=== PATIENT | female | born 1995 | race African-American/Black ===

== ENCOUNTER 2017-01-11 08:48 | Emergency (ER) | payer SELFPAY ==
[~2017-01-11] VITALS: Ht 172.7 cm; Wt 56.7 kg
[2017-01-11 09:14] LABS: BILIRUBIN,URINE NEGATIVE (NEG); GLUCOSE,URINE NEGATIVE (NEG); NITRITE,URINE NEGATIVE (NEG); PH,URINE 6.5; PROTEIN,URINE NEGATIVE (NEG-TRACE); UROBILINOGEN,URINE 0.2 mg/dL (0.2 mg/dL)
[2017-01-11 09:18] LABS: BASO % 1 % (0-3); EOS % 0 % (0-3); HEMATOCRIT 36.2 % (36.0-47.0); HEMOGLOBIN 12.5 g/dL (12.0-15.5); LYMPH # 1.9 x10^3/uL (1.0-4.8); LYMPH % 33 % (24-48); MEAN CORPUSCULAR HEMOGLOBIN 29 pg (25-35); MEAN CORPUSCULAR HGB CONC 35 g/dL (31-37); MEAN CORPUSCULAR VOLUME 83 fL (79-100); MONO % 6 % (0-9); NEUT % 60 % (31-73); PLATELET COUNT 286 x10^3/uL (140-400); RED BLOOD COUNT 4.37 x10^6/uL (3.50-5.40); RED CELL DISTRIBUTION WIDTH 12.9 % (11.5-14.5); WHITE BLOOD COUNT 5.8 x10^3/uL (4.0-11.0)
[2017-01-11 09:21] LABS: BACTERIA,URINE FEW /HPF (0-FEW); SQUAMOUS EPITHELIAL CELL,UR MOD /LPF; WBC,URINE OCC /HPF (0-4)
[2017-01-11 09:22] LABS: RBC,URINE 20-40 /HPF (0-2)
--- NOTE | 2017-01-11 09:23 | PHYS DOC ---
Past Medical History Past Medical History: No Pertinent History Past Surgical History: No Surgical History Alcohol Use: None Drug Use: None Adult General Chief Complaint Chief Complaint: VAGINAL BLEEDING [facility] HPI Patient is a 21 year old female . Patient was seen there and had tested positive for a quant level was done at that time and it was 435. She did have a CBC completed on this date with a hemoglobin of 12.4 and a hematocrit of 36.8. Urine was positive for small amount of blood but negative otherwise. Patient was discharged home at that time. Patient states that she went home on Sunday she developed spotting went back to the emergency department at [facility] a quant was redone there again and was 725. Patient presents today to the emergency department stating that she has continued to have spotting. She states that she is not going through any pads or panty liners. However she is noting bloody tissue when she wipes. She states that she did have an ultrasound completed at [facility] and identified a cyst on the left. She states that is where she's had most of her cramping at however at this time she is not having any cramping or pain. Patient states that this is her first . Review of Systems Review of Systems Constitutional: Denies fever or chills [] Eyes: Denies change in visual acuity, redness, or eye pain [] HENT: Denies nasal congestion or sore throat [] Respiratory: Denies cough or shortness of breath [] Cardiovascular: No additional information not addressed in HPI [] GI: Denies abdominal pain, nausea, vomiting, bloody stools or diarrhea [] : Denies dysuria or hematuria. Complaint of vaginal bleeding/spotting Musculoskeletal: Denies back pain or joint pain [] Integument: Denies rash or skin lesions [] Neurologic: Denies headache, focal weakness or sensory changes [] Endocrine: Denies polyuria or polydipsia [] Allergies Allergies Allergies Coded Allergies Type Severity Reaction Last Updated Verified No Known Drug Allergies 01/11/17 No Physical Exam Physical Exam Constitutional: Well developed, well nourished, no acute distress, non-toxic appearance. [] HENT: Normocephalic, atraumatic, bilateral external ears normal, oropharynx moist, no oral exudates, nose normal. [] Eyes: PERRLA, EOMI, conjunctiva normal, no discharge. [] Neck: Normal range of motion, no tenderness, supple, no stridor. [] Cardiovascular:Heart rate regular rhythm, no murmur [] Lungs & Thorax: Bilateral breath sounds clear to auscultation [] Abdomen: Bowel sounds hypoactive, soft, no tenderness, no masses, no pulsatile masses. [] Skin: Warm, dry, no erythema, no rash. [] Back: No tenderness Extremities: No tenderness, no cyanosis, no clubbing, ROM intact, no edema. [] Neurologic: Alert and oriented X 3, normal motor function, normal sensory function, no focal deficits noted. [] Psychologic: Affect normal, judgement normal, mood normal. Pelvic exam was completed with RNErendira at the bedside. Speculum exam identified dark color vaginal discharge around the cervical area. No vaginal bleeding in the vault noted. Manual exam with no adnexal tenderness no cervical motion tenderness. Cervix appears to be closed at this time. [] Current Patient Data Vital Signs Vital Signs Date Time Temp Pulse Resp B/P (MAP) Pulse Ox O2 Delivery O2 Flow Rate FiO2 01/11/17 09:59 78 112/68 (83) 100 Room Air 01/11/17 09:00 98.5 16 98.5 Lab Values Laboratory Tests Test 01/11/17 08:11 01/11/17 09:05 01/11/17 09:14 POC Urine HCG, Qualitative Hcg positive (Negative) Urine Collection Type Void Urine Color Yellow Urine Clarity Clear Urine pH 6.5 Urine Specific [place] 1.020 Urine Protein Negative mg/dL (NEG-TRACE) Urine Glucose (UA) Negative mg/dL (NEG) Urine Ketones (Stick) Negative mg/dL (NEG) Urine Blood Large (NEG) Urine Nitrite Negative (NEG) Urine Bilirubin Negative (NEG) Urine Urobilinogen Dipstick 0.2 mg/dL (0.2 mg/dL) Urine Leukocyte Esterase Negative (NEG) Urine RBC 20-40 /HPF (0-2) Urine WBC Occ /HPF (0-4) Urine Squamous Epithelial Cells Mod /LPF Urine Bacteria Few /HPF (0-FEW) Urine Mucus Mod /LPF White Blood Count 5.8 x10^3/uL (4.0-11.0) Red Blood Count 4.37 x10^6/uL (3.50-5.40) Hemoglobin 12.5 g/dL (12.0-15.5) Hematocrit 36.2 % (36.0-47.0) Mean Corpuscular Volume 83 fL (79-100) Mean Corpuscular Hemoglobin 29 pg (25-35) Mean Corpuscular Hemoglobin Concent 35 g/dL (31-37) Red Cell Distribution Width 12.9 % (11.5-14.5) Platelet Count 286 x10^3/uL (140-400) Neutrophils (%) (Auto) 60 % (31-73) Lymphocytes (%) (Auto) 33 % (24-48) Monocytes (%) (Auto) 6 % (0-9) Eosinophils (%) (Auto) 0 % (0-3) Basophils (%) (Auto) 1 % (0-3) Neutrophils # (Auto) 3.5 x10^3uL (1.8-7.7) Lymphocytes # (Auto) 1.9 x10^3/uL (1.0-4.8) Monocytes # (Auto) 0.3 x10^3/uL (0.0-1.1) Eosinophils # (Auto) 0.0 x10^3/uL (0.0-0.7) Basophils # (Auto) 0.0 x10^3/uL (0.0-0.2) Maternal Serum HCG Beta Subunit 1959 mIU/mL (0-5) H Sodium Level 140 mmol/L (136-145) Potassium Level 3.5 mmol/L (3.5-5.1) Chloride Level 103 mmol/L (98-107) Carbon Dioxide Level 25 mmol/L (21-32) Anion Gap 12 (6-14) Blood Urea Nitrogen 11 mg/dL (7-20) Creatinine 0.7 mg/dL (0.6-1.0) Estimated GFR (Cockcroft-Gault) 106.7 BUN/Creatinine Ratio 16 (6-20) Glucose Level 103 mg/dL (70-99) H Calcium Level 9.0 mg/dL (8.5-10.1) Total Bilirubin 0.3 mg/dL (0.2-1.0) Aspartate Amino Transferase (AST) 13 U/L (15-37) L Alanine Aminotransferase (ALT) 24 U/L (14-59) Alkaline Phosphatase 52 U/L (46-116) Total Protein 7.8 g/dL (6.4-8.2) Albumin 4.2 g/dL (3.4-5.0) Albumin/Globulin Ratio 1.2 (1.0-1.7) Laboratory Tests 01/11/17 09:14 Laboratory Tests 01/11/17 09:14 Microbiology 01/11/17 Wet Prep - Final, Complete EKG EKG [] Radiology/Procedures Radiology/Procedures [] Course & Med Decision Making Course & Med Decision Making Pertinent Labs and Imaging studies reviewed. (See chart for details) Patient's CBC was within normal limits, CMP normal, quantitative hCG 1958. Urinalysis was negative. Patient's ultrasound identified a small amount of echogenic free fluid in the cul-de-sac, moderate thickening of the central uterine ago complex without evidence of an intrauterine or extrauterine gestational sac diagnostic considerations included nonviable or early intrauterine or an occult ectopic correlate with serial hCG titers and possibly sonographic follow-up is suggested. Patient was provided with the ultrasound report. She was Rh- she'll be provided with program here in the emergency department. She does have a [employer] appointment with the green chain operator on Sunday. Recommended her calling and trying to get in at an earlier appointment. Patient was instructed to return back to the emergency department if she should have any increased abdominal cramping, bleeding as well. Patient agrees with discharge instructions treatment regimens and follow-up recommendations. All questions and concerns were answered at patient's bedside. [] Dragon Disclaimer Dragon Disclaimer This electronic medical record was generated, in whole or in part, using a voice recognition dictation system. Departure Departure Impression: Primary Impression: Vaginal bleeding in Additional Impression: Threatened Disposition: 01 HOME, SELF-CARE Condition: STABLE Referrals: ILIANA HERRMANN Jr, MD Patient Instructions: Threatened Miscarriage, [id number], Vaginal Bleeding During , [id number] Additional Instructions: Activity as tolerated. Tylenol for any pain and discomfort. Follow-up with your [employer]IN[employer]ING MACHINE TENDER in regards to serial quantitative hCGs. Pelvic rest: This would include nothing to be inserted into the vaginal area such as douching, tampons, sexual intercourse, foreplay. Follow-up with your SPINNING MACHINE TENDER in the next 2-3 days. Return back to the emergency department for any increased abdominal pain or discomfort, any increased vaginal bleeding. Also return back to emergency department for any signs and symptoms of become worse. Problem Qualifiers DAISY TILLMAN APRN Jan 11, 2017 09:23
[2017-01-11 09:28] LABS: CREATININE 0.7 mg/dL (0.6-1.0); GFR 106.7; POTASSIUM 3.5 mmol/L (3.5-5.1)
[2017-01-11 09:33] LABS: ALBUMIN 4.2 g/dL (3.4-5.0); ALBUMIN/GLOBULIN RATIO 1.2 (1.0-1.7); TOTAL BILIRUBIN 0.3 mg/dL (0.2-1.0); TOTAL PROTEIN 7.8 g/dL (6.4-8.2)
--- NOTE | 2017-01-11 10:33 | RAD ---
Obstetrical ultrasound, 01/11/2017: History: with bleeding Transabdominal and transvaginal scans were obtained. There is echogenic thickening of the central uterine echo complex which measures 2.5 cm in AP dimension. No intrauterine gestational sac is seen. There are small follicular cysts in both ovaries. The largest cyst lies on the left and measures 1.7 cm. This may be a corpus luteum cyst. No separate adnexal mass or ectopic gestational sac is seen. There is a small amount of echogenic fluid in the cul-de-sac. IMPRESSION: 1. Small amount of echogenic free fluid in the cul-de-sac. 2. Moderate thickening of the central uterine echo complex without evidence of an intrauterine or extrauterine gestational sac. Diagnostic considerations include a nonviable or early intrauterine , or an occult ectopic . Correlation with serial hCG titers and possibly sonographic follow-up is suggested.
[2017-01-11 11:36] VITALS: BP 114/67
[2017-01-11 11:59] VITALS: BP 109/59
== END 2017-01-11 12:12 | disposition home or self-care (01) ==
LOC: ER 08:48
DX: O20.0 Threatened abortion (principal); Z3A.01 Less than 8 weeks gestation of pregnancy
CPT/HCPCS: 36415; 76801; 76817; 80053; 81001; 81025; 84702; 85025; 86850; 86900; 86901; 87491; 87591; 99285; J2791; Q0111